=== PATIENT | male | born 1985 | race African-American/Black ===

== ENCOUNTER 2017-02-21 22:37 | Emergency (ER) | payer BC ==
[~2017-02-21] VITALS: Ht 188 cm; Wt 86.2 kg
[2017-02-21 22:57] VITALS: BP 147/90
--- NOTE | 2017-02-21 23:02 | NUR ---
TO LOBBY OCLEVSS, A/W BED, NORRIS NOTED
--- NOTE | 2017-02-22 00:10 | NUR ---
PT AMBULATED TO BED 3.
--- NOTE | 2017-02-22 00:15 | NUR ---
31/M c/o right groin pain and right testicle swelling x2 weeks. Patient also c/o painful urination x2 weeks. Denies medical hx. AOX4, ambulatory with steady gait. VSS. Pt placed into a gown, placed in position of comfort.
[2017-02-22] MEDS ORDERED: AZITHROMYCIN 250 MG TAB PO ONE (00:55)
[2017-02-22] MEDS ORDERED: cefTRIAXone 250 MG in LIDOCAINE 1% ***ER ONLY *** 0.9 ML IM ONE (00:55)
--- NOTE | 2017-02-22 00:56 | NUR ---
Ultrasound at bedside.
[2017-02-22] MEDS ORDERED: cefTRIAXone 250 MG VIAL ONE (01:09)
[2017-02-22] MEDS ORDERED: LIDOCAINE 2% 1000 MG/50 ML VIAL INJ ONE (01:09)
[2017-02-22 01:20] VITALS: BP 128/86
--- NOTE | 2017-02-22 01:20 | NUR ---
Patient discharged with v/s stable. Written and verbal after care instructions given and explained. Patient alert, oriented and verbalized understanding of instructions. Ambulatory with steady gait. All questions addressed prior to discharge. ID band removed. Patient advised to follow up with PMD. Rx of Doxycycline 100mg and Motrin 800mg given. Patient educated on indication of medication including possible reaction and side effects. Opportunity to ask questions provided and answered.
[2017-02-22 01:33] LABS: APPEARANCE,URINE CLEAR (CLEAR); BILIRUBIN,URINE 1+ (NEGATIVE); BLOOD, URINE NEGATIVE (NEGATIVE); COLOR,URINE YELLOW (YELLOW); LEUKOCYTE ESTERASE ,URINE NEGATIVE (NEGATIVE); NITRITE, URINE NEGATIVE (NEGATIVE); UGLUCOSE NEGATIVE (NEGATIVE)
[2017-02-22 01:42] LABS: RBC,URINE 0-5 (RARE) /HPF (0-5); WBC,URINE 0-5 (RARE) /HPF (0-5)
[2017-02-26 12:23] LABS: CHLAMYDIA TRACHOMATIS AMP DNA Negative (Negative)
== END 2017-02-22 01:20 | disposition home or self-care (01) ==
LOC: MED 22:37
DX: N39.0 Urinary tract infection, site not specified (principal)
CPT/HCPCS: 36415; 76870; 81001; 96372; 99285; J0696; J2001; Q0092; 87491